=== PATIENT | female | born 1980 | race Caucasian/White ===

== ENCOUNTER → 2016-09-14 | Outpatient (CLI) | payer MEDICAID ==
[~2016-09-14] MED LIST: AMBIEN CR 12.12.5 MG PO; AMITRIPTYLINE H50 M1 PO; AMOXICILLIN 50500 MG PO; ASPIRIN 32325 MG/TAB PO; ASPIRIN 81M81 MG/TA2 PO; ASPIRIN E.C. 8181 MG PO; BACTROBAN15 GM TOP; CARAFATE 1GM1 G PO; CARAFATE S1 GM/10 ML PO; CEFTIN500 MG PO; CENTRUM1 TAB; CEPHALEXIN500 M1 PO; CIPRO 500MG TA500 MG; COLACE 100100 MG/CAP PO; COLACE50 MG PO; DAZIDOX20 MG; DAZIDOX20 MG PO; DIAMOX SEQUELS500 M1 PO; DIFLUCAN150 MG PO; DOXYCYCLINE 10100 MG PO; DOXYCYCLINE HY100 MG PO; DULCOLAX S10 MG/SUPP RC; DUO-KAPS1 CAP PO; EFFIENT10 MG PO; EXCEDRIN ES; FENTANYL 25 MCG TOP; FIORINAL 325 MG1 CAP PO; FLAGYL 250250 MG/TAB; FLAGYL500 MG; FLAGYL500 MG PO; FLEXERIL 1010 MG/TAB PO; GOLYTELY SOLU4000 ML PO; KLONOPIN 1MG1 MG PO; LAMICTAL 100MG100 MG PO; LEVAQUIN 5500 MG/TA1 PO; LORTAB 10/500 51 TAB; LORTAB 2.5/5001 TAB; LUNESTA 1MG TAB1 MG PO; MACROBID 1100 MG/CAP PO; MEDROL 4MG DOSPA4 MG PO; MELATONIN5 M1; MELATONIN5 M2 PO; MELATONIN5 MG PO; MIRALAX PA17 GM/Dose PO; NEURONTIN300 MG/CAP PO; NEXIUM 20MG20 MG PO; NEXIUM 40MG40 MG PO; NORCO 325 MG-101 TAB; NORCO 325 MG-101 TAB PO; NORCO 325 MG-51 TAB PO; OXYCONTIN 80MG80 MG PO; OXYCONTIN40 MG PO; OXYCONTIN60 MG PO; PAXIL40 MG PO; PEPCID 20MG TAB20 MG PO; PERCOCET 325 MG1 TA2 PO; PERCOCET 325 MG1 TA3 PO; PERCOCET 325 MG1 TAB PO; PERI-COLACE 501 TAB PO; PHENERGAN 25 TA25 MG PO; PRENATAL VITAMI1 TA5 PO; PREVACID 30MG30 M1 PO; PRIL40; PRIL40 PO; PROTONIX 40MG T40 MG PO; PYRIDIUM PO; PYRIDIUM200 M1 PO; REGLAN 10MG10 MG/TAB PO; REGLAN 5MG T5 MG/TAB; ROXICODONE15 MG PO; ROXICODONE30 MG PO; SEROQUEL50 MG PO; STOOL SOFTNER PO; SURFAK 240240 MG/CAP PO; SYNTHROID0.05 MG/TA PO; TAMIFLU 75MG75 MG PO; ULTRAM 50MG TAB50 MG PO; VALTREX1 GM PO; VITAMIN C500 MG PO; XANAX .25M0.25 MG/TA; XANAX .25M0.25 MG/TA PO; XANAX 0.5MG0.5 MG PO; ZITHROMAX 250M250 MG PO; ZOFRAN 4MG T4 MG/TAB PO; ZOFRAN ODT4 MG PO; [UNRECOGNIZED DRUG - OTHER]; oxycodone PO
== END ==
LOC: COL.RAD 09:43
DX: G43.511 Persistent migraine aura without cerebral infarction, intractable, with status migrainosus (principal); H47.10 Unspecified papilledema; G93.2 Benign intracranial hypertension
CPT/HCPCS: A9585

== ENCOUNTER 2016-09-24 15:29 | Emergency (ER) | payer MEDICAID ==
[~2016-09-24] VITALS: Ht 170.2 cm; Wt 65.9 kg
[~2016-09-24 15:29] MED LIST changes: -BACTROBAN15 GM TOP; -DOXYCYCLINE 10100 MG PO; -DOXYCYCLINE HY100 MG PO; -FIORINAL 325 MG1 CAP PO; -KLONOPIN 1MG1 MG PO; -LAMICTAL 100MG100 MG PO; -PERCOCET 325 MG1 TA3 PO; -SEROQUEL50 MG PO
[2016-09-24 15:32] VITALS: TEMP 98.2
[2016-09-24 18:15] VITALS: BP 120/61; PULSE 64
== END 2016-09-24 18:18 | disposition home or self-care (01) ==
LOC: COL.ER 15:29
DX: G43.909 Migraine, unspecified, not intractable, without status migrainosus (principal); F41.9 Anxiety disorder, unspecified
CPT/HCPCS: J1170; J1200; J1630; J7030

== ENCOUNTER → 2016-09-27 | Outpatient (CLI) | payer MEDICAID ==
[~2016-09-27] MED LIST changes: +BACTROBAN15 GM TOP; +DOXYCYCLINE 10100 MG PO; +DOXYCYCLINE HY100 MG PO; +FIORINAL 325 MG1 CAP PO; +KLONOPIN 1MG1 MG PO; +LAMICTAL 100MG100 MG PO; +PERCOCET 325 MG1 TA3 PO; +SEROQUEL50 MG PO
== END ==
LOC: COL.RAD 11:07
DX: M25.511 Pain in right shoulder (principal)
CPT/HCPCS: J3301; Q9967

== ENCOUNTER → 2016-10-06 | Outpatient (CLI) | payer OTHER | LOC: COL.RAD 10:22 | DX: M25.571 Pain in right ankle and joints of right foot (principal); M25.572 Pain in left ankle and joints of left foot ==

== ENCOUNTER 2016-10-21 10:15 | Outpatient (RCR) | payer MEDICAID ==
[~2016-10-21 10:15] MED LIST changes: -BACTROBAN15 GM TOP; -DOXYCYCLINE 10100 MG PO; -DOXYCYCLINE HY100 MG PO; -FIORINAL 325 MG1 CAP PO; -KLONOPIN 1MG1 MG PO; -LAMICTAL 100MG100 MG PO; -PERCOCET 325 MG1 TA3 PO; -SEROQUEL50 MG PO
== END 2016-11-25 10:24 | disposition home or self-care (01) ==
LOC: WSPT 10:15
DX: M25.561 Pain in right knee (principal); Z87.828 Personal history of other (healed) physical injury and trauma

== ENCOUNTER 2016-11-27 13:38 | Emergency (ER) | payer MEDICAID ==
[~2016-11-27] VITALS: Ht 172.7 cm; Wt 75.0 kg
[2016-11-27 13:39] VITALS: TEMP 98
[2016-11-27 14:21] LABS: BASO # 0.1 (0.0-0.2); BASO % 0.6 % (0.0-2.0); EOS # 0.1 (0.0-0.7); EOS % 1.4 % (0-4.0); GRAN # 5.1 (1.4-6.5); GRAN % 65.2 % (42.2-75.2); HEMATOCRIT 37.5 % (37.0-47.0); HEMOGLOBIN 12.4 g/dl (12.5-16.0); LYMPH # 2.1 (1.2-3.4); LYMPH % 26.8 % (20.0-51.0); MEAN CELL VOLUME 92 fl (80.0-100.0); MEAN CORPUSCULAR HEMOGLOBIN 30 pg (27.0-31.0); MEAN CORPUSCULAR HGB CONC 33 g/dl (33.0-37.0); MEAN PLATELET VOLUME 9.3 fl (7.4-10.4); MONO # 0.5 (0.1-0.6); MONO % 5.7 % (1.7-9.3); PLATELET COUNT 303 K/mm3 (130-400); REDCELL DISTRIBUTION WIDTH-CV 14.1 % (11.5-14.5); WHITE BLOOD COUNT 7.9 K/mm3 (4.8-10.8)
[2016-11-27 14:42] LABS: ADJUSTED CALCIUM 8.3 mg/dL (8.4-10.2); ALBUMIN 3.9 gm/dL (3.5-5.0); BILIRUBIN,TOTAL 0.6 mg/dL (0.0-1.0); CALCIUM 8.2 mg/dL (8.4-10.2); CREATININE, serum 0.73 mg/dL (0.52-1.25); POTASSIUM 3.7 mmol/L (3.4-5.0); TOTAL PROTEIN 6.5 gm/dL (6.4-8.2)
[2016-11-27 15:51] LABS: PH 6 (5-8); SQUAMOUS EPITHELIAL 0-2 /hpf; URINE APPEARANCE Hazy; URINE BACTERIA None Seen /hpf; URINE BILIRUBIN Negative (NEGATIVE); URINE BLOOD 1+ (NEGATIVE); URINE COLOR Yellow; URINE GLUCOSE Negative (NEGATIVE); URINE KETONE Negative (NEGATIVE); URINE RBC 0-2 /hpf; URINE UROBILINOGEN Negative (NEGATIVE); URINE WBC 0-2 /hpf
[2016-11-27] MEDS ORDERED: PERCOCET 325 MG1 TA2 PO (16:49)
[2016-11-27 17:04] VITALS: BP 99/59; PULSE 65
[2016-11-28] MEDS ORDERED: CARAFATE 1GM1 G PO (16:30)
[2016-11-28] MEDS ORDERED: PERCOCET 325 MG1 TA3 PO (16:30)
== END 2016-11-27 17:06 | disposition home or self-care (01) ==
LOC: COL.ER 13:38
PROVIDERS: Nurse Practitioner
DX: R10.11 Right upper quadrant pain (principal); R10.2 Pelvic and perineal pain; R10.31 Right lower quadrant pain; N93.9 Abnormal uterine and vaginal bleeding, unspecified
CPT/HCPCS: J1170; J2405; J2550; J7030; Q9967

== ENCOUNTER 2016-11-28 13:35 | Emergency (ER) | payer MEDICAID ==
[~2016-11-28] VITALS: Ht 172.7 cm; Wt 75.0 kg
[2016-11-28 13:41] VITALS: BP 126/78; TEMP 97.9
[2016-11-28 15:13] LABS: BASO % 0.5 % (0.0-2.0); EOS # 0.2 (0.0-0.7); EOS % 3.4 % (0-4.0); GRAN # 2.7 (1.4-6.5); GRAN % 43.4 % (42.2-75.2); LYMPH # 2.8 (1.2-3.4); LYMPH % 45.7 % (20.0-51.0); MEAN CELL VOLUME 94 fl (80.0-100.0); MEAN CORPUSCULAR HGB CONC 32 g/dl (33.0-37.0); MEAN PLATELET VOLUME 9.1 fl (7.4-10.4); MONO # 0.4 (0.1-0.6); MONO % 6.8 % (1.7-9.3); PLATELET COUNT 274 K/mm3 (130-400); RED BLOOD COUNT 3.84 M/mm3 (4.10-5.30); REDCELL DISTRIBUTION WIDTH-CV 14.2 % (11.5-14.5); WHITE BLOOD COUNT 6.2 K/mm3 (4.8-10.8)
[2016-11-28 15:15] LABS: HEMATOCRIT 36.2 % (37.0-47.0); HEMOGLOBIN 11.5 g/dl (12.5-16.0); MEAN CORPUSCULAR HEMOGLOBIN 30 pg (27.0-31.0)
[2016-11-28 15:32] LABS: ADJUSTED CALCIUM 8.7 mg/dL (8.4-10.2); ALBUMIN 3.6 gm/dL (3.5-5.0); BILIRUBIN,TOTAL 0.4 mg/dL (0.0-1.0); CALCIUM 8.4 mg/dL (8.4-10.2); CREATININE, serum 0.74 mg/dL (0.52-1.25); POTASSIUM 3.6 mmol/L (3.4-5.0); TOTAL PROTEIN 5.9 gm/dL (6.4-8.2)
[2016-11-28 15:39] LABS: C-REACTIVE PROTEIN 0.5 mg/dL (0.0-0.9)
[2016-11-28] MEDS ORDERED: PERCOCET 325 MG1 TA3 PO (16:30)
[2016-11-28] MEDS ORDERED: CARAFATE 1GM1 G PO (16:30)
[2016-11-28 17:37] VITALS: PULSE 60
[2016-11-29] MEDS ORDERED: FIORINAL 325 MG1 CAP PO (11:32)
[2016-11-29] MEDS ORDERED: KLONOPIN 1MG1 MG PO (11:32)
[2016-11-29] MEDS ORDERED: LAMICTAL 100MG100 MG PO (11:32)
== END 2016-11-28 17:38 | disposition home or self-care (01) ==
LOC: COL.ER 13:35
PROVIDERS: Physician Assistant
DX: R10.13 Epigastric pain (principal); R10.11 Right upper quadrant pain; R19.5 Other fecal abnormalities; R11.2 Nausea with vomiting, unspecified; K29.70 Gastritis, unspecified, without bleeding
CPT/HCPCS: J1170; J2405; J2550; J7030

== ENCOUNTER 2016-11-29 10:28 | Day surgery (SDC) | payer MEDICAID ==
[~2016-11-29] VITALS: Ht 172.7 cm; Wt 78.5 kg
[~2016-11-29 10:28] MED LIST changes: +PERCOCET 325 MG1 TA3 PO
[2016-11-29 10:56] VITALS: BP 130/78; PULSE 62; TEMP 98.5
[2016-11-29] MEDS ORDERED: FIORINAL 325 MG1 CAP PO (11:32)
[2016-11-29] MEDS ORDERED: KLONOPIN 1MG1 MG PO (11:32)
[2016-11-29] MEDS ORDERED: LAMICTAL 100MG100 MG PO (11:32)
[2016-11-29 12:19] VITALS: BP 111/71; PULSE 69
[2016-11-29 12:35] VITALS: BP 109/68; PULSE 69
[2016-11-29 12:49] VITALS: BP 113/73; PULSE 66
[2016-11-29 13:05] VITALS: BP 109/68; PULSE 66
[2016-11-29 17:49] VITALS: BP 96/49; PULSE 61
== END 2016-11-29 13:10 | disposition home or self-care (01) ==
LOC: SDCO 10:28
DX: K25.7 Chronic gastric ulcer without hemorrhage or perforation (principal); K29.30 Chronic superficial gastritis without bleeding; K30 Functional dyspepsia; K21.9 Gastro-esophageal reflux disease without esophagitis
CPT/HCPCS: J2250; J2405; J3010; J7030

== ENCOUNTER 2016-12-01 14:22 | Emergency (ER) | payer MEDICAID ==
[~2016-12-01] VITALS: Ht 172.7 cm; Wt 73.6 kg
[~2016-12-01 14:22] MED LIST changes: +FIORINAL 325 MG1 CAP PO; +KLONOPIN 1MG1 MG PO; +LAMICTAL 100MG100 MG PO
[2016-12-01 14:33] VITALS: TEMP 99
[2016-12-01] MEDS ORDERED: PRIL40 PO (14:47)
[2016-12-01 15:30] LABS: PH 7 (5-8); URINE APPEARANCE Clear; URINE BACTERIA None Seen /hpf; URINE BILIRUBIN Negative (NEGATIVE); URINE BLOOD Negative (NEGATIVE); URINE COLOR Yellow; URINE GLUCOSE Negative (NEGATIVE); URINE KETONE Negative (NEGATIVE); URINE RBC 0-2 /hpf; URINE UROBILINOGEN Negative (NEGATIVE)
[2016-12-01 15:32] LABS: BASO % 0.3 % (0.0-2.0); EOS # 0.1 (0.0-0.7); EOS % 0.8 % (0-4.0); GRAN # 5.1 (1.4-6.5); GRAN % 71.9 % (42.2-75.2); HEMATOCRIT 42.1 % (37.0-47.0); HEMOGLOBIN 13.7 g/dl (12.5-16.0); LYMPH # 1.5 (1.2-3.4); LYMPH % 21.2 % (20.0-51.0); MEAN CELL VOLUME 91 fl (80.0-100.0); MEAN CORPUSCULAR HEMOGLOBIN 30 pg (27.0-31.0); MEAN CORPUSCULAR HGB CONC 33 g/dl (33.0-37.0); MEAN PLATELET VOLUME 9.3 fl (7.4-10.4); MONO # 0.4 (0.1-0.6); MONO % 5.5 % (1.7-9.3); PLATELET COUNT 291 K/mm3 (130-400); RED BLOOD COUNT 4.61 M/mm3 (4.10-5.30); REDCELL DISTRIBUTION WIDTH-CV 13.8 % (11.5-14.5); WHITE BLOOD COUNT 7.1 K/mm3 (4.8-10.8)
[2016-12-01 15:46] LABS: ADJUSTED CALCIUM 9.4 mg/dL (8.4-10.2); ALANINE AMINOTRANSFERASE 207 U/L (9-52); ALBUMIN 4.2 gm/dL (3.5-5.0); ALKALINE PHOSPHATASE 114 U/L (50-136); ANION GAP 10 mmol/L (7-16); BILIRUBIN,TOTAL 0.4 mg/dL (0.0-1.0); BLOOD UREA NITROGEN 20 mg/dL (7-17); C-REACTIVE PROTEIN < 0.5 mg/dL (0.0-0.9); CALCIUM 9.6 mg/dL (8.4-10.2); CARBON DIOXIDE 29 mmol/L (22-30); CHLORIDE 102 mmol/L (98-107); CREATININE, serum 0.82 mg/dL (0.52-1.25); GLUCOSE 110 mg/dL (74-106); LIPASE 56 U/L (23-300); POTASSIUM 4.1 mmol/L (3.4-5.0); SODIUM 140 mmol/L (137-145); TOTAL PROTEIN 7.2 gm/dL (6.4-8.2)
[2016-12-01] MEDS ORDERED: PHENERGAN 25 TA25 MG PO (17:18)
[2016-12-01] MEDS ORDERED: PERCOCET 325 MG1 TA3 PO (17:39)
[2016-12-01 17:49] VITALS: BP 121/89; PULSE 69
== END 2016-12-01 17:50 | disposition home or self-care (01) ==
LOC: COL.ER 14:22
PROVIDERS: Emergency Medicine
DX: R10.11 Right upper quadrant pain (principal); R10.12 Left upper quadrant pain; R11.2 Nausea with vomiting, unspecified; K27.9 Peptic ulcer, site unspecified, unspecified as acute or chronic, without hemorrhage or perforation; K29.70 Gastritis, unspecified, without bleeding; K59.00 Constipation, unspecified
CPT/HCPCS: J1170; J2060; J2405; J2550; J7030

== ENCOUNTER 2016-12-08 16:59 | Emergency (ER) | payer MEDICAID ==
[~2016-12-08] VITALS: Ht 172.7 cm; Wt 72.7 kg
[2016-12-08 17:07] VITALS: BP 137/87; TEMP 97.4
[2016-12-08] MEDS ORDERED: SEROQUEL50 MG PO (17:26)
[2016-12-08] MEDS ORDERED: ZOFRAN 4MG T4 MG/TAB PO (17:28)
[2016-12-08 17:47] LABS: BASO % 0.5 % (0.0-2.0); EOS # 0.1 (0.0-0.7); EOS % 1.1 % (0-4.0); GRAN # 5.4 (1.4-6.5); GRAN % 65.1 % (42.2-75.2); HEMOGLOBIN 13.1 g/dl (12.5-16.0); LYMPH # 2.3 (1.2-3.4); LYMPH % 27.2 % (20.0-51.0); MEAN CELL VOLUME 91 fl (80.0-100.0); MEAN CORPUSCULAR HEMOGLOBIN 29 pg (27.0-31.0); MEAN CORPUSCULAR HGB CONC 32 g/dl (33.0-37.0); MEAN PLATELET VOLUME 9.5 fl (7.4-10.4); MONO # 0.5 (0.1-0.6); MONO % 5.9 % (1.7-9.3); PLATELET COUNT 324 K/mm3 (130-400); RED BLOOD COUNT 4.49 M/mm3 (4.10-5.30); REDCELL DISTRIBUTION WIDTH-CV 13.8 % (11.5-14.5); WHITE BLOOD COUNT 8.3 K/mm3 (4.8-10.8)
[2016-12-08 17:55] LABS: ADJUSTED CALCIUM 9.2 mg/dL (8.4-10.2); ALBUMIN 4.3 gm/dL (3.5-5.0); BILIRUBIN,TOTAL 0.7 mg/dL (0.0-1.0); CALCIUM 9.4 mg/dL (8.4-10.2); CREATININE, serum 0.78 mg/dL (0.52-1.25); POTASSIUM 3.9 mmol/L (3.4-5.0); TOTAL PROTEIN 7.2 gm/dL (6.4-8.2)
[2016-12-08 18:18] LABS: PH 7 (5-8); SQUAMOUS EPITHELIAL 0-2 /hpf; URINE APPEARANCE Clear; URINE BACTERIA Rare /hpf; URINE BILIRUBIN Negative (NEGATIVE); URINE BLOOD Negative (NEGATIVE); URINE COLOR Colorless; URINE GLUCOSE Negative (NEGATIVE); URINE KETONE Negative (NEGATIVE); URINE RBC 0-2 /hpf; URINE UROBILINOGEN Negative (NEGATIVE); URINE WBC 0-2 /hpf
[2016-12-08 19:50] VITALS: PULSE 68
== END 2016-12-08 19:50 | disposition home or self-care (01) ==
LOC: COL.ER 16:59
PROVIDERS: Family Medicine
DX: K29.70 Gastritis, unspecified, without bleeding (principal); K62.5 Hemorrhage of anus and rectum; K21.9 Gastro-esophageal reflux disease without esophagitis
CPT/HCPCS: J1630; J2405; J2550; J7030

== ENCOUNTER 2016-12-16 20:11 | Emergency (ER) | payer MEDICAID ==
[~2016-12-16] VITALS: Ht 172.7 cm; Wt 73.6 kg
[~2016-12-16 20:11] MED LIST changes: +SEROQUEL50 MG PO
[2016-12-16 20:16] VITALS: TEMP 98.4
[2016-12-16 20:44] LABS: BASO # 0.1 (0.0-0.2); BASO % 0.8 % (0.0-2.0); EOS # 0.1 (0.0-0.7); EOS % 1.5 % (0-4.0); GRAN # 4.7 (1.4-6.5); HEMATOCRIT 41.6 % (37.0-47.0); HEMOGLOBIN 13.7 g/dl (12.5-16.0); LYMPH # 2.2 (1.2-3.4); LYMPH % 27.6 % (20.0-51.0); MEAN CELL VOLUME 91 fl (80.0-100.0); MEAN CORPUSCULAR HEMOGLOBIN 30 pg (27.0-31.0); MEAN CORPUSCULAR HGB CONC 33 g/dl (33.0-37.0); MEAN PLATELET VOLUME 9.7 fl (7.4-10.4); MONO # 0.8 (0.1-0.6); MONO % 9.8 % (1.7-9.3); PLATELET COUNT 319 K/mm3 (130-400); RED BLOOD COUNT 4.58 M/mm3 (4.10-5.30); REDCELL DISTRIBUTION WIDTH-CV 13.3 % (11.5-14.5); WHITE BLOOD COUNT 7.8 K/mm3 (4.8-10.8)
[2016-12-16 21:01] LABS: ADJUSTED CALCIUM 9.1 mg/dL (8.4-10.2); ALBUMIN 3.9 gm/dL (3.5-5.0); BILIRUBIN,TOTAL 0.4 mg/dL (0.0-1.0); CREATININE, serum 0.71 mg/dL (0.52-1.25); TOTAL PROTEIN 6.6 gm/dL (6.4-8.2)
[2016-12-16 22:14] VITALS: BP 105/60; PULSE 68
== END 2016-12-16 22:17 | disposition home or self-care (01) ==
LOC: COL.ER 20:11
PROVIDERS: Emergency Medicine
DX: K60.2 Anal fissure, unspecified (principal); R10.84 Generalized abdominal pain
CPT/HCPCS: J1170; J1630; J2060; J2765; J7030

== ENCOUNTER 2016-12-19 13:23 | Day surgery (SDC) | payer MEDICAID ==
[~2016-12-19] VITALS: Ht 172.7 cm; Wt 77.1 kg
[2016-12-19 15:16] VITALS: BP 101/63; PULSE 62; TEMP 97.5
[2016-12-19 15:45] VITALS: BP 90/54; PULSE 61
[2016-12-19 16:00] VITALS: BP 96/63; PULSE 59
== END 2016-12-19 16:04 | disposition home or self-care (01) ==
LOC: SDCO 13:23
DX: R19.5 Other fecal abnormalities (principal); K59.00 Constipation, unspecified; K64.1 Second degree hemorrhoids; R10.84 Generalized abdominal pain; K21.9 Gastro-esophageal reflux disease without esophagitis; Z79.899 Other long term (current) drug therapy
CPT/HCPCS: OP; J2405; J2704; J3010

== ENCOUNTER 2017-01-20 16:09 | Emergency (ER) | payer MEDICAID ==
[~2017-01-20] VITALS: Ht 172.7 cm; Wt 72.3 kg
[2017-01-20 16:10] VITALS: BP 136/91; PULSE 80; TEMP 98.2
[2017-01-20] MEDS ORDERED: DOXYCYCLINE HY100 MG PO (16:45)
[2017-01-20] MEDS ORDERED: CEPHALEXIN500 M1 PO (16:45)
[2017-01-20] MEDS ORDERED: PHENERGAN 25 TA25 MG PO (17:12)
== END 2017-01-20 17:15 | disposition home or self-care (01) ==
LOC: COL.ER 16:09
DX: L03.032 Cellulitis of left toe (principal)

== ENCOUNTER 2017-02-03 13:38 | Emergency (ER) | payer MEDICAID ==
[~2017-02-03] VITALS: Ht 172.7 cm; Wt 70.9 kg
[~2017-02-03 13:38] MED LIST changes: +DOXYCYCLINE HY100 MG PO
[2017-02-03 13:42] VITALS: BP 121/78; PULSE 65; TEMP 98
[2017-02-03] MEDS ORDERED: BACTROBAN15 GM TOP (14:37)
== END 2017-02-03 14:43 | disposition home or self-care (01) ==
LOC: COL.ER 13:38
DX: S91.105A Unspecified open wound of left lesser toe(s) without damage to nail, initial encounter (principal); X58.XXXA Exposure to other specified factors, initial encounter

== ENCOUNTER 2017-03-17 15:43 | Emergency (ER) | payer MEDICAID ==
[~2017-03-17] VITALS: Ht 172.7 cm; Wt 70.5 kg
[~2017-03-17 15:43] MED LIST changes: +BACTROBAN15 GM TOP
[2017-03-17 15:49] VITALS: BP 125/76; TEMP 99.3
[2017-03-17 16:51] LABS: BASO # 0.1 (0.0-0.2); BASO % 0.6 % (0.0-2.0); EOS % 0.2 % (0-4.0); GRAN # 9.1 (1.4-6.5); GRAN % 69.5 % (42.2-75.2); HEMATOCRIT 40.4 % (37.0-47.0); HEMOGLOBIN 13.6 g/dl (12.5-16.0); LYMPH # 3.4 (1.2-3.4); LYMPH % 25.5 % (20.0-51.0); MEAN CELL VOLUME 88 fl (80.0-100.0); MEAN CORPUSCULAR HEMOGLOBIN 30 pg (27.0-31.0); MEAN CORPUSCULAR HGB CONC 34 g/dl (33.0-37.0); MEAN PLATELET VOLUME 9.3 fl (7.4-10.4); MONO # 0.5 (0.1-0.6); MONO % 3.8 % (1.7-9.3); PLATELET COUNT 403 K/mm3 (130-400); RED BLOOD COUNT 4.59 M/mm3 (4.10-5.30); WHITE BLOOD COUNT 13.1 K/mm3 (4.8-10.8)
[2017-03-17 17:23] LABS: CALCIUM 9.8 mg/dL (8.4-10.2); CREATININE, serum 0.86 mg/dL (0.52-1.25); POTASSIUM 3.7 mmol/L (3.4-5.0)
[2017-03-17 18:37] VITALS: PULSE 75
== END 2017-03-17 18:38 | disposition home or self-care (01) ==
LOC: COL.ER 15:43
PROVIDERS: Emergency Medicine
DX: R51 Headache (principal); K21.9 Gastro-esophageal reflux disease without esophagitis; K58.9 Irritable bowel syndrome, unspecified; F43.10 Post-traumatic stress disorder, unspecified; Z86.73 Personal history of transient ischemic attack (TIA), and cerebral infarction without residual deficits; Z79.82 Long term (current) use of aspirin; Z90.49 Acquired absence of other specified parts of digestive tract; Z87.19 Personal history of other diseases of the digestive system; Z90.89 Acquired absence of other organs; Z98.890 Other specified postprocedural states
CPT/HCPCS: J1630; J2060; J2765; J3010; J7030

== ENCOUNTER 2017-03-19 13:47 | Emergency (ER) | payer MEDICAID ==
[2017-03-19 13:49] VITALS: TEMP 97
[2017-03-19 16:16] VITALS: BP 131/75; PULSE 69
[2017-03-19 17:15] LABS: BASO # 0.1 (0.0-0.2); BASO % 0.7 % (0.0-2.0); EOS % 0.3 % (0-4.0); GRAN # 8.4 (1.4-6.5); GRAN % 71.2 % (42.2-75.2); HEMATOCRIT 38.4 % (37.0-47.0); HEMOGLOBIN 12.7 g/dl (12.5-16.0); LYMPH # 2.7 (1.2-3.4); LYMPH % 23.4 % (20.0-51.0); MEAN CELL VOLUME 90 fl (80.0-100.0); MEAN CORPUSCULAR HEMOGLOBIN 30 pg (27.0-31.0); MEAN CORPUSCULAR HGB CONC 33 g/dl (33.0-37.0); MEAN PLATELET VOLUME 9.3 fl (7.4-10.4); MONO # 0.5 (0.1-0.6); PLATELET COUNT 360 K/mm3 (130-400); RED BLOOD COUNT 4.28 M/mm3 (4.10-5.30); REDCELL DISTRIBUTION WIDTH-CV 14.3 % (11.5-14.5); WHITE BLOOD COUNT 11.7 K/mm3 (4.8-10.8)
[2017-03-19 17:26] LABS: ADJUSTED CALCIUM 8.9 mg/dL (8.4-10.2); ALBUMIN 4.4 gm/dL (3.5-5.0); BILIRUBIN,TOTAL 0.6 mg/dL (0.0-1.0); CALCIUM 9.2 mg/dL (8.4-10.2); CREATININE, serum 0.74 mg/dL (0.52-1.25); POTASSIUM 3.5 mmol/L (3.4-5.0); TOTAL PROTEIN 7.3 gm/dL (6.4-8.2)
== END 2017-03-19 18:25 | disposition home or self-care (01) ==
LOC: COL.ER 13:47
PROVIDERS: Physician Assistant
DX: S06.0X0A Concussion without loss of consciousness, initial encounter (principal); S16.1XXA Strain of muscle, fascia and tendon at neck level, initial encounter; S40.022A Contusion of left upper arm, initial encounter; S00.93XA Contusion of unspecified part of head, initial encounter; W18.09XA Striking against other object with subsequent fall, initial encounter; R40.2412 Glasgow coma scale score 13-15, at arrival to emergency department; Z87.820 Personal history of traumatic brain injury
CPT/HCPCS: J3010; J7030

== ENCOUNTER 2017-04-15 16:56 | Emergency (ER) | payer MEDICAID ==
[~2017-04-15] VITALS: Ht 172.7 cm; Wt 71.4 kg
[2017-04-15 16:57] VITALS: TEMP 97.9
[2017-04-15] MEDS ORDERED: PHENERGAN 25 TA25 MG PO (17:32)
[2017-04-15] MEDS ORDERED: ZOFRAN ODT4 MG PO (17:32)
[2017-04-15] MEDS ORDERED: DOXYCYCLINE 10100 MG PO (17:32)
[2017-04-15 17:44] VITALS: BP 113/75; PULSE 82
== END 2017-04-15 17:58 | disposition home or self-care (01) ==
LOC: COL.ER 16:56
DX: S71.112A Laceration without foreign body, left thigh, initial encounter (principal); F43.10 Post-traumatic stress disorder, unspecified; G89.29 Other chronic pain; Z23 Encounter for immunization; W26.8XXA Contact with other sharp object(s), not elsewhere classified, initial encounter
CPT/HCPCS: J2550; J3010

== ENCOUNTER 2017-04-16 14:27 | Emergency (ER) | payer OTHER, MEDICAID ==
[~2017-04-16] VITALS: Ht 172.7 cm; Wt 71.4 kg
[~2017-04-16 14:27] MED LIST changes: +DOXYCYCLINE 10100 MG PO
[2017-04-16 14:29] VITALS: BP 124/83; PULSE 77; TEMP 98.5
== END 2017-04-16 15:51 | disposition home or self-care (01) ==
LOC: COL.ER 14:27
DX: S71.111D Laceration without foreign body, right thigh, subsequent encounter (principal); F17.210 Nicotine dependence, cigarettes, uncomplicated

== ENCOUNTER 2017-05-03 12:35 | Outpatient (RCR) | payer MEDICAID | END 2017-05-16 08:34 | LOC: WSPT 12:35 | DX: M25.562 Pain in left knee (principal) ==

== ENCOUNTER → 2017-05-10 | Outpatient (CLI) | payer MEDICAID | LOC: MHCPAIN 10:44 | DX: G89.29 Other chronic pain (principal); M47.817 Spondylosis without myelopathy or radiculopathy, lumbosacral region; M25.561 Pain in right knee; M79.2 Neuralgia and neuritis, unspecified | CPT/HCPCS: G0463 ==